=== PATIENT | male | born 1955 | race Caucasian/White ===

== ENCOUNTER → 2017-12-04 11:34 | Outpatient (CLI) | payer OTHER, SELFPAY ==
[2017-12-04 12:42] LABS: Hemoglobin A1C% w Est Avg Glu 7.9 % (4.0-6.0)
[2017-12-04 12:45] LABS: Alanine Aminotransferase 77 IU/L (21-72); Aspartate Aminotransferase 39 IU/L (17-59); Blood Urea Nitrogen 12 mg/dL (9-20); Calcium 9.7 mg/dL (8.4-10.2); Carbon Dioxide 29 mmol/L (22-32); Chloride 102 mmol/L (98-107); Cholesterol 178 mg/dL (140-199); Estimated Glomerular Filt Rate > 60.0 mL/min (>60); Glucose 160 mg/dL (80-110); HDL Cholesterol 25 mg/dL (40-60); HEMOLYSIS < 15 (0-50); LDL Cholesterol Calculated 86 mg/dL (<100); Potassium 4.4 mmol/L (3.4-5.1); Sodium 141 mmol/L (137-145); Triglycerides 334 mg/dL (35-150)
== END ==
PROVIDERS: Family Provider Internal Medicine; PCP Internal Medicine; Visit Provider Internal Medicine
DX: I10 Essential (primary) hypertension (principal); E11.9 Type 2 diabetes mellitus without complications; E78.5 Hyperlipidemia, unspecified
CPT/HCPCS: 36415; 80048; 80061; 83036; 84450; 84460

== ENCOUNTER → 2018-06-30 09:00 | Outpatient (CLI) | payer OTHER, SELFPAY ==
[2018-06-30 09:44] LABS: Hemoglobin A1C% w Est Avg Glu 6.9 % (4.0-6.0)
[2018-06-30 09:51] LABS: Alanine Aminotransferase 44 IU/L (21-72); Aspartate Aminotransferase 22 IU/L (17-59); BUN Creatinine Ratio 21.4 (6-22); Blood Urea Nitrogen 15 mg/dL (9-20); Calcium 9.3 mg/dL (8.4-10.2); Carbon Dioxide 28 mmol/L (22-32); Chloride 101 mmol/L (98-107); Cholesterol 152 mg/dL (140-199); Estimated Glomerular Filt Rate > 60.0 mL/min (>60); Glucose 213 mg/dL (80-110); HDL Cholesterol 23 mg/dL (40-60); HEMOLYSIS 17 (0-50); LDL Cholesterol Calculated 63 mg/dL (<100); Potassium 4.7 mmol/L (3.4-5.1); Sodium 139 mmol/L (137-145); Triglycerides 331 mg/dL (35-150)
== END ==
PROVIDERS: PCP Internal Medicine; Visit Provider Internal Medicine
DX: E78.5 Hyperlipidemia, unspecified (principal); E11.9 Type 2 diabetes mellitus without complications; I10 Essential (primary) hypertension
CPT/HCPCS: 36415; 80048; 80061; 83036; 84450; 84460

== ENCOUNTER → 2019-02-04 09:26 | Outpatient (CLI) | payer MEDICARE, SELFPAY ==
[2019-02-04 12:16] LABS: Hemoglobin A1C% w Est Avg Glu 6.6 % (4.0-6.0)
[2019-02-04 12:53] LABS: Blood Urea Nitrogen 14 mg/dL (9-20); Calcium 9.6 mg/dL (8.4-10.2); Carbon Dioxide 27 mmol/L (22-32); Chloride 100 mmol/L (98-107); Cholesterol 186 mg/dL (140-199); Estimated Glomerular Filt Rate > 60.0 mL/min (>60); Glucose 164 mg/dL (80-110); HDL Cholesterol 23 mg/dL (40-60); HEMOLYSIS < 15 (0-50); LDL Cholesterol Calculated 95 mg/dL (<100); Potassium 4.5 mmol/L (3.4-5.1); Sodium 139 mmol/L (137-145); Triglycerides 339 mg/dL (35-150)
== END ==
PROVIDERS: PCP Internal Medicine; Visit Provider Internal Medicine
DX: I10 Essential (primary) hypertension (principal); E78.5 Hyperlipidemia, unspecified; E11.9 Type 2 diabetes mellitus without complications
CPT/HCPCS: 36415; 80048; 80061; 83036

== ENCOUNTER → 2019-05-27 08:06 | Outpatient (CLI) | payer MEDICARE, SELFPAY ==
[2019-05-27 09:19] LABS: Hemoglobin A1C% w Est Avg Glu 6.6 % (4.0-6.0)
[2019-05-27 09:25] LABS: BUN Creatinine Ratio 21.7 (6-22); Blood Urea Nitrogen 13 mg/dL (9-20); Calcium 9.1 mg/dL (8.4-10.2); Carbon Dioxide 25 mmol/L (22-32); Chloride 104 mmol/L (98-107); Cholesterol 158 mg/dL (140-199); Estimated Glomerular Filt Rate > 60.0 mL/min (>60); Glucose 195 mg/dL (80-110); HDL Cholesterol 21 mg/dL (40-60); HEMOLYSIS < 15 (0-50); LDL Cholesterol Calculated 80 mg/dL (<100); Potassium 4.4 mmol/L (3.4-5.1); Sodium 141 mmol/L (137-145); Triglycerides 284 mg/dL (35-150)
== END ==
PROVIDERS: PCP Internal Medicine; Referring Provider Internal Medicine; Visit Provider Internal Medicine
DX: I10 Essential (primary) hypertension (principal); E78.5 Hyperlipidemia, unspecified; E11.9 Type 2 diabetes mellitus without complications
CPT/HCPCS: 36415; 80048; 80061; 83036

== ENCOUNTER → 2019-11-23 08:59 | Outpatient (CLI) | payer MEDICARE, SELFPAY ==
[2019-11-23 11:05] LABS: Alanine Aminotransferase 38 IU/L (<50); Albumin 4.4 g/dL (3.5-5.0); Albumin Globulin Ratio 1.6 (1.0-2.8); Alkaline Phosphatase 83 U/L (38-126); Aspartate Aminotransferase 26 IU/L (17-59); BUN Creatinine Ratio 22.2 (6-22); Bilirubin Total 0.8 mg/dL (0.2-1.3); Blood Urea Nitrogen 12 mg/dL (9-20); Calcium 9.7 mg/dL (8.4-10.2); Carbon Dioxide 25 mmol/L (22-32); Chloride 102 mmol/L (98-107); Cholesterol 209 mg/dL (140-199); Estimated Glomerular Filt Rate > 60.0 mL/min (>60); Globulin 2.8 g/dL (1.7-4.1); Glucose 368 mg/dL (80-110); HDL Cholesterol 19 mg/dL (40-60); Potassium 4.2 mmol/L (3.4-5.1); Sodium 136 mmol/L (137-145); Total Protein 7.2 g/dL (6.3-8.2)
[2019-11-23 11:12] LABS: HEMOLYSIS 25 (0-50)
[2019-11-23 11:17] LABS: Triglycerides 807 mg/dL (35-150)
[2019-11-23 11:58] LABS: Hemoglobin A1C% w Est Avg Glu 10.2 % (4.0-6.0)
== END ==
PROVIDERS: PCP Internal Medicine; Referring Provider Internal Medicine; Visit Provider Internal Medicine
DX: E11.9 Type 2 diabetes mellitus without complications (principal); E78.5 Hyperlipidemia, unspecified; I10 Essential (primary) hypertension
CPT/HCPCS: 36415; 80053; 80061; 83036

== ENCOUNTER → 2020-05-08 12:36 | Outpatient (CLI) | payer MEDICARE, SELFPAY ==
[2020-05-08] MEDS: COVID-19 VACC #1, MRNA(MOD) 100 MCG/0.5 ML VIAL IM (12:45)
== END ==
PROVIDERS: PCP Internal Medicine; Visit Provider Internal Medicine
DX: Z23 Encounter for immunization (principal)
CPT/HCPCS: 0011A; 91301

== ENCOUNTER → 2020-06-05 11:59 | Outpatient (CLI) | payer MEDICARE, SELFPAY ==
[2020-06-05] MEDS: COVID-19 VACC #2, MRNA(MOD) 100 MCG/0.5 ML VIAL IM (12:23)
== END ==
PROVIDERS: PCP Internal Medicine; Visit Provider Internal Medicine
DX: Z23 Encounter for immunization (principal)
CPT/HCPCS: 0012A; 91301

== ENCOUNTER → 2020-07-17 08:38 | Outpatient (CLI) | payer OTHER, SELFPAY ==
[2020-07-17 09:43] LABS: Creatinine Urine Random 87.5 mg/dL
[2020-07-17 09:47] LABS: Alanine Aminotransferase 26 IU/L (<50); Albumin 4.6 g/dL (3.5-5.0); Albumin Globulin Ratio 1.8 (1.0-2.8); Alkaline Phosphatase 64 U/L (38-126); Aspartate Aminotransferase 20 IU/L (17-59); Bilirubin Total 0.7 mg/dL (0.2-1.3); Blood Urea Nitrogen 9 mg/dL (9-20); Calcium 9.4 mg/dL (8.4-10.2); Carbon Dioxide 29 mmol/L (22-32); Chloride 101 mmol/L (98-107); Cholesterol 152 mg/dL (140-199); Estimated Glomerular Filt Rate > 60.0 mL/min (>60); Globulin 2.5 g/dL (1.7-4.1); Glucose 142 mg/dL (80-110); HDL Cholesterol 24 mg/dL (40-60); HEMOLYSIS < 15 (0-50); LDL Cholesterol Calculated 77 mg/dL (<100); Potassium 4.9 mmol/L (3.4-5.1); Sodium 138 mmol/L (137-145); Total Protein 7.1 g/dL (6.3-8.2); Triglycerides 256 mg/dL (35-150)
[2020-07-17 09:48] LABS: Microalbumin Urine Random 0.7 mg/dL (0-1.6)
[2020-07-17 18:27] LABS: Hemoglobin A1C% w Est Avg Glu 6.4 % (4.0-6.0)
[2020-07-19 02:10] LABS: PSA Free % 56.7 % (.); PSA, Total 0.6 ng/mL (0.0-4.0)
== END ==
PROVIDERS: PCP Internal Medicine; Referring Provider Internal Medicine; Visit Provider Internal Medicine
DX: I10 Essential (primary) hypertension (principal); E11.9 Type 2 diabetes mellitus without complications; E78.5 Hyperlipidemia, unspecified; Z12.5 Encounter for screening for malignant neoplasm of prostate
CPT/HCPCS: 36415; 80053; 80061; 82043; 82570; 83036; 84153; 84154

== ENCOUNTER → 2020-10-01 10:13 | Outpatient (CLI) | payer OTHER, SELFPAY ==
[2020-10-01 10:48] LABS: Hemoglobin A1C% w Est Avg Glu 6.3 % (4.0-6.0)
[2020-10-01 10:56] LABS: Alanine Aminotransferase 17 IU/L (<50); Albumin 4.3 g/dL (3.5-5.0); Albumin Globulin Ratio 1.6 (1.0-2.8); Alkaline Phosphatase 51 U/L (38-126); Aspartate Aminotransferase 17 IU/L (17-59); BUN Creatinine Ratio 16.7 (6-22); Bilirubin Total 0.5 mg/dL (0.2-1.3); Blood Urea Nitrogen 10 mg/dL (9-20); Calcium 9.3 mg/dL (8.4-10.2); Carbon Dioxide 27 mmol/L (22-32); Chloride 105 mmol/L (98-107); Cholesterol 133 mg/dL (140-199); Estimated Glomerular Filt Rate > 60.0 mL/min (>60); Globulin 2.7 g/dL (1.7-4.1); Glucose 135 mg/dL (80-110); HDL Cholesterol 26 mg/dL (40-60); HEMOLYSIS < 15 (0-50); LDL Cholesterol Calculated 67 mg/dL (<100); Potassium 4.5 mmol/L (3.4-5.1); Sodium 138 mmol/L (137-145); Triglycerides 199 mg/dL (35-150)
== END ==
PROVIDERS: PCP Internal Medicine; Referring Provider Internal Medicine; Visit Provider Internal Medicine
DX: E78.5 Hyperlipidemia, unspecified (principal); E11.9 Type 2 diabetes mellitus without complications; I10 Essential (primary) hypertension
CPT/HCPCS: 36415; 80053; 80061; 83036

== ENCOUNTER → 2020-12-23 08:28 | Outpatient (CLI) | payer OTHER, SELFPAY ==
--- NOTE | 2020-12-23 | DI.US.S_ITS ---
PROCEDURE: US ABD AORTA ANEURYSM SCREEN INDICATIONS: SCREENING TECHNIQUE: Real time scanning was performed of the aorta and iliac arteries, with image documentation. COMPARISON: None. FINDINGS: Aorta: Proximal aortic diameter measures 3 x 3 cm. Mid-aorta measures 2.5 cm. Distal aortic diameter is 2.3 cm. Iliac arteries: Right common iliac artery measures 1.4 cm. Left common iliac artery measures 1.4 cm. IMPRESSION: Minimal proximal aortic aneurysm, measuring 3 cm AP. Dictated by: Ashutosh Soliz M.D. on 12/23/2020 at 9:02 Approved by: Ashutosh Soliz M.D. on 12/23/2020 at 9:02
== END ==
PROVIDERS: PCP Internal Medicine; Referring Provider Internal Medicine; Visit Provider Internal Medicine
DX: Z13.6 Encounter for screening for cardiovascular disorders (principal)
CPT/HCPCS: 76706

== ENCOUNTER 2021-03-02 08:58 | Day surgery (SDC) | payer OTHER, SELFPAY ==
--- NOTE | 2021-03-02 | PATH_ITS ---
[facility] Accession Number: [id number] . 01 Material submitted: . colon - ASCENDING COLON POLYP . 02 Diagnosis: Ascending Colon Polyp: Tubular adenoma. MRV 03/04/2021 1222 Local . 02 Electronically signed: . Bozena Camacho MD, Pathologist NPI- [id number] . 01 Gross description: . The specimen is received in formalin, labeled ascending colon polyp and consists of a 0.4 x 0.3 x 0.3 cm espitia-pink fragment of soft tissue, which is entirely submitted in cassette A1. ([id number]) /MRV 03/03/2021 1229 Local . 02 Pathologist provided ICD-10: K63.5 . 02 CPT . 993103 Performed at: 01 [facility] [address] [id number] MD Pradeep Young MD Phone: [phone] Performed at: 02 [facility] [place] [address] [place] [id number] MD Giuliana Childers MD Phone: [phone]
[2021-03-02 09:14] VITALS: BP 160/95; PULSE 62; RESP 16; TEMP 36.4; O2SAT 99; BMI 29.0
--- NOTE | 2021-03-02 09:29 | PM.HP.1 ---
History of Present Illness History of Present Illness Date Patient Seen: 03/02/21 Time Patient Seen: 09:29 Chief complaint: DX COLONOSCOPY Narrative: Here for colonoscopy personal history of colon polyps. Patient History Medical History No significant medical problems Family & Social History Tobacco & Substance use: Smoking Status Former smoker Meds Home Medications and Allergies Home Medications Medication Instructions Recorded Confirmed Type atorvastatin 10 mg tablet (Lipitor) 10 mg PO HS #0 12/01/16 04/20/19 History citalopram 40 mg tablet (Celexa) 40 mg PO QDAY #0 12/01/16 04/20/19 History omega 0-mpf-yym-fish oil 1,000 mg 1,000 mg PO #0 12/01/16 04/20/19 History (120 mg-180 mg) capsule (Fish Oil) triamcinolone acetonide 0.1 % 1 janak TOPICAL BID #15 gm 12/01/16 04/20/19 Rx topical cream amoxicillin 875 mg-potassium 1 tab PO BID #14 tab 04/20/19 04/20/19 Rx clavulanate 125 mg tablet (Augmentin) benzonatate 100 mg capsule 100 mg PO BID PRN #14 cap 04/20/19 04/20/19 Rx (Tessalon Perles) glipizide-metformin PO 04/20/19 04/20/19 History metformin 1,000 mg tablet 1,000 mg PO DAILY 04/20/19 04/20/19 History Allergies Allergy/AdvReac Type Severity Reaction Status Date / Time No Known Drug Allergies Allergy Unverified 04/20/19 10:58 Review of Systems Review of Systems ROS: Yes All systems reviewed with the patient and are negative except as otherwise documented Exam Const General: cooperative and comfortable Orientation: alert HENMT Head: normocephalic Ears: external ears normal Nose: external nose normal Face and sinus: normal facial exam Eyes General: appearance normal, both eyes and all related structures Neck Neck: normal visual inspection Chest Chest: normal inspection of the chest Resp Effort & Inspection: normal respiratory effort Cardio Rate: regular rate GI Inspection: normal to inspection Skin General: no rashes or lesions noted and No jaundice Neuro General: patient alert and moves all extremities Cognition: normal cognition Speech: speech normal Extrem General: normal to inspection Psych Appearance: grossly normal Assessment & Plan Assessment & Plan narrative: Personal history of colon polyps. Colonoscopy is planned for today. Time Spent With Patient Critical Care time: I spent a total of [] minutes of critical care time on this patient's care today; this time is exclusive of procedural time.
[2021-03-02 09:34] LABS: COVID19 -Nasal RAPID Negative (Negative)
[2021-03-02] MEDS: LACTATED RINGERS 1,000 ML 84 ML IV (09:54)
--- NOTE | 2021-03-02 11:01 | PM.OP.COLON ---
Operative Date/Time/Diagnoses Date of procedure: 03/02/21 Time of procedure: 11:01 Pre-op diagnosis: Polyp history Post-op diagnosis: same Procedure & Clinicians Study performed: Colonoscopy with hot snare polypectomy Same procedure as scheduled: Yes Indications: Polyp history Surgeon: Mirza Valle Procedure Notes SCOAP/Timeout: Done Procedure in detail: After the risks and benefits were explained, written and verbal informed consent was obtained. The patient was brought into the procedure room and placed into the left lateral decubitus position. Please see nurse legal paraprofessional notes for sedation details. Digital rectal examination was accomplished. The scope was introduced into the patient and advanced under direct visualization to the cecum as identified by the appendiceal orifice and ileocecal valve. The scope was slowly withdrawn to carefully examine the mucosa for any defects or lesions. Comprehensive imaging was accomplished throughout the rectum including the dentate line. The colon was decompressed, the scope was then removed from the patient who tolerated the procedure well. Bowel prep fair Adult colonoscope Scope withdrawal time: 11 minutes Sedation minutes: 19 Complications: none Impression: Extensive diverticulosis was encountered in the sigmoid. There was an approximately 6-7 mm sessile polyp in the ascending colon removed with hot snare. There was a 2nd 6 mm polyp in the transverse removed with hot snare. This 2nd polyp was removed but if not retrieved (it was lost in some of the residual prep and stool debris) Endoscopic diagnosis 1. Colon polyps 2. Diverticulosis Post-procedure Recommendations: Colonoscopy in 3 years Plan for aftercare: 1. Await histopathology 2. Considering the presence of polyps and a fair prep today, repeat colonoscopy is suggested for 3 years Disposition: PACU
[2021-03-02 11:02] VITALS: BP 124/82; PULSE 73; RESP 22; TEMP 36.5; O2SAT 98
[2021-03-02 11:07] VITALS: BP 115/88; PULSE 63; RESP 14; O2SAT 98
--- NOTE | 2021-03-02 11:09 | PM.PREOP ---
Pre-operative Note COVID-19 COVID-19 status: Negative Result date/Date tested (Pos, Neg/Pending): 03/02/21 Interval Note History & Physical reviewed/Exam performed by Physician: Yes Changes to H&P: No ASA Class (for procedural sedation): II
[2021-03-02 11:12] VITALS: BP 133/89; PULSE 67; RESP 14; O2SAT 98
[2021-03-02 11:16] VITALS: BP 131/88; PULSE 58; RESP 12; O2SAT 98
== END 2021-03-02 11:50 | disposition home or self-care (01) ==
PROVIDERS: PCP Internal Medicine; Referring Provider Internal Medicine Gastroenterology; Visit Provider Internal Medicine Gastroenterology
PROC: 0DJD8ZZ Inspection of Lower Intestinal Tract, Via Natural or Artificial Opening Endoscopic (ICD-10-PCS; CPT 45378; principal; 2021-03-02 10:00)
DX: Z12.11 Encounter for screening for malignant neoplasm of colon (principal); Z86.010 Personal history of colon polyps; K57.30 Diverticulosis of large intestine without perforation or abscess without bleeding; D12.2 Benign neoplasm of ascending colon
CPT/HCPCS: 45385; 87635; J2704

== ENCOUNTER → 2023-01-24 08:16 | Outpatient (CLI) | payer MEDICARE, SELFPAY ==
--- NOTE | 2023-01-24 | DI.US.S_ITS ---
PROCEDURE: US ABD AORTA ANEURYSM SCREEN INDICATIONS: AORTIC ANEURYSM TECHNIQUE: Real time scanning was performed of the aorta and iliac arteries, with image documentation. COMPARISON: [facility], , ABD AORTA ANEURYSM SCREEN, 12/23/2020, 8:46. FINDINGS: Aorta: Proximal aortic diameter measures 3 cm. Mid-aorta measures 2.5 x 2.1 cm. Distal aortic diameter is 2.3 x 2.0 cm. Iliac arteries: Right common iliac artery measures 1.4 x 1.2 cm. Left common iliac artery measures 1.4 x 1.0 cm. IMPRESSION: Borderline abdominal aortic aneurysm at 3 cm in the proximal region. Consider 3 year follow-up. Dictated by: Sami Angulo M.D. on 01/24/2023 at 9:27 Approved by: Sami Angulo M.D. on 01/24/2023 at 9:28
== END ==
PROVIDERS: PCP Internal Medicine; Referring Provider Internal Medicine; Visit Provider Internal Medicine
DX: I71.40 Abdominal aortic aneurysm, without rupture, unspecified (principal)
CPT/HCPCS: 76706

== ENCOUNTER 2024-03-27 07:28 | Day surgery (SDC) | payer MEDICARE, SELFPAY ==
[2024-03-27 08:31] VITALS: BP 136/85; PULSE 73; RESP 18; TEMP 35.8; O2SAT 97
--- NOTE | 2024-03-27 08:32 | PM.HP.1 ---
History of Present Illness History of Present Illness Date Patient Seen: 03/27/24 Chief complaint: Dx Colonoscopy w/poss bx Narrative: Personal history of colon polyps [facility] Medical History (Updated 03/27/24 @ 08:14 by Juanis Pope RN) Hx of diabetes mellitus History of depression History of high cholesterol No significant medical problems Social History household members: none Smoking Status: Former smoker alcohol intake: current Meds Home Medications and Allergies Home Medications Medication Instructions Recorded Confirmed Type atorvastatin 10 mg tablet (Lipitor) 10 mg PO HS ##0 12/01/16 03/27/24 History citalopram 40 mg tablet (Celexa) 40 mg PO QDAY ##0 12/01/16 03/27/24 History omega 1-uqj-tzm-fish oil 1,000 mg 1,000 mg PO ##0 12/01/16 04/20/19 History (120 mg-180 mg) capsule (Fish Oil) triamcinolone acetonide 0.1 % 1 janak topical BID ##15 12/01/16 04/20/19 Rx topical cream metformin 1,000 mg tablet 2,000 mg PO DAILY 04/20/19 03/27/24 History alprazolam 0.5 mg tablet 0.5 mg PO PRN PRN Anxiety 03/02/21 03/27/24 History semaglutide 2 mg/dose (8 mg/3 mL) 1 mg SUBCUT 03/27/24 History subcutaneous pen injector Allergies Allergy/AdvReac Type Severity Reaction Status Date / Time No Known Drug Allergies Allergy Verified 03/02/21 09:35 Exam Narrative Exam Narrative: Oropharynx free of lesions Chest clear to auscultation percussion Cardiac exam reveals no S3 or murmur Assessment & Plan Assessment & Plan narrative: Personal history of colon polyps need for follow-up colonoscopy at a 3 year interval. Risks, benefits, alternatives have explained. Time-Based Coding :: [TOTAL MINUTES] spent with patient and on the chart (including review of chart, obtaining history, exam, reviewing outside data, placing orders, documenting exam and treatment plan, and counseling patient) on [DATE].
--- NOTE | 2024-03-27 08:33 | PM.OP.COLON ---
Operative Date/Time/Diagnoses Date of procedure: 03/27/24 Pre-op diagnosis: See indication and findings Procedure & Clinicians Study performed: Colonoscopy Indications: Personal history of polyps Surgeon: Armida Rogers Procedure Notes Procedure in detail: After informed consent was obtained the patient was placed in left lateral decubitus position. The video colonoscope was placed in the rectum and slowly advanced.. Unfortunately preparation was not good. On slow withdrawal mucosa was carefully examined. The scope was removed. The patient tolerated procedure well. Blood loss none Complications none Sedation mac Findings 1. Significant residual prep. This included many stool balls from the extensive diverticulosis in the left side. This combined with semi-liquid stool throughout which could not be suctioned given the large number of stool balls, the procedure was aborted. Scope was passed to just proximal to the splenic flexure. Patient should be rescheduled with a prep that included an extra dose to give more time to expel the excess stool.
[2024-03-27 09:08] VITALS: BP 130/79; PULSE 75; RESP 12; TEMP 36.4; O2SAT 97
[2024-03-27 09:13] VITALS: BP 129/87; PULSE 74; RESP 14; TEMP 36.4; O2SAT 98
[2024-03-27 09:20] VITALS: BP 121/78; PULSE 71; RESP 15; TEMP 36.6; O2SAT 98
== END 2024-03-27 09:44 | disposition home or self-care (01) ==
PROVIDERS: PCP Internal Medicine; Referring Provider Internal Medicine Gastroenterology; Visit Provider Internal Medicine Gastroenterology
PROC: 0DJD8ZZ Inspection of Lower Intestinal Tract, Via Natural or Artificial Opening Endoscopic (ICD-10-PCS; CPT 45378; principal; 2024-03-27 09:30)
DX: Z12.11 Encounter for screening for malignant neoplasm of colon (principal); Z86.0100 Personal history of colon polyps, unspecified; K57.30 Diverticulosis of large intestine without perforation or abscess without bleeding; Z53.09 Procedure and treatment not carried out because of other contraindication
CPT/HCPCS: G0105; J2704

== ENCOUNTER 2024-05-13 07:52 | Day surgery (SDC) | payer MEDICARE, SELFPAY ==
[2024-05-13 08:26] VITALS: BP 142/81; PULSE 67; RESP 16; TEMP 36.3; O2SAT 97
--- NOTE | 2024-05-13 08:32 | SUR.PREOP ---
Dr Rogers states brandon for [employer] to provide transport home post procedure
[2024-05-13] MEDS: SODIUM CHLORIDE 0.9% 1,000 ML 84 ML IV (08:33)
--- NOTE | 2024-05-13 08:50 | P.HP_ITS ---
History of Present Illness History of Present Illness Date Patient Seen: 05/13/24 Chief complaint: Colonoscopy w/poss bx Narrative: Personal history of colon polyps and family history of colon cancer in his mother. Need for screening colonoscopy. [facility] Medical History (Updated 03/27/24 @ 08:14 by Juanis Pope, ISA) Hx of diabetes mellitus History of depression History of high cholesterol No significant medical problems Social History household members: none Smoking Status: Former smoker alcohol intake: current Meds Home Medications and Allergies Home Medications Medication Instructions Recorded Confirmed Type atorvastatin 10 mg tablet (Lipitor) 10 mg PO HS ##0 12/01/16 05/13/24 History citalopram 40 mg tablet (Celexa) 40 mg PO QDAY ##0 12/01/16 05/13/24 History omega 9-frj-sdn-fish oil 1,000 mg 1,000 mg PO ##0 12/01/16 04/20/19 History (120 mg-180 mg) capsule (Fish Oil) triamcinolone acetonide 0.1 % 1 janak topical BID ##15 12/01/16 04/20/19 Rx topical cream metformin 1,000 mg tablet 2,000 mg PO DAILY 04/20/19 05/13/24 History alprazolam 0.5 mg tablet 0.5 mg PO PRN PRN Anxiety 03/02/21 05/13/24 History semaglutide 2 mg/dose (8 mg/3 mL) 1 mg SUBCUT 03/27/24 History subcutaneous pen injector Allergies Allergy/AdvReac Type Severity Reaction Status Date / Time No Known Drug Allergies Allergy Verified 03/02/21 09:35 Exam Vital Signs (past 8 hours): - 05/13/24 08:26 Temperature 97.3 F L Pulse Rate 67 Respiratory Rate 16 Blood Pressure 142/81 H Pulse Oximetry 97 Oxygen Delivery Method Room Air Oxygen Delivery Method Room Air Narrative Exam Narrative: Oropharynx free of lesions Chest clear to auscultation percussion Cardiac exam reveals no S3 or murmurs Assessment & Plan Assessment & Plan narrative: Personal history of colon polyps and family history of colon cancer need for follow-up colonoscopy. Risks, benefits, alternatives have been explained. Time-Based Coding :: [TOTAL MINUTES] spent with patient and on the chart (including review of chart, obtaining history, exam, reviewing outside data, placing orders, documenting exam and treatment plan, and counseling patient) on [DATE].
--- NOTE | 2024-05-13 08:52 | P.OP.COLON_ITS ---
Operative Date/Time/Diagnoses Date of procedure: 05/13/24 Pre-op diagnosis: See indication and findings Procedure & Clinicians Study performed: Colonoscopy Indications: Personal history of colon polyps and family history of colon cancer in a first- degree relative Surgeon: Armida Rogers Procedure Notes Procedure in detail: After informed consent was obtained the patient was placed in left lateral decubitus position. The video upper scope was placed into the oropharynx and with the patient's help swallowed into the esophagus. The esophagus stomach and duodenal were carefully examined. On withdrawal, retroflexed view the GE junction was performed. The scope was removed. The patient tolerated procedure well. Blood loss none Complications none Sedation mac Findings 1. Rare scattered diverticula particularly on the left side 2. Otherwise negative colonoscopy to cecum. Preparation was excellent. Given the family history and personal history of colon polyps he should have follow-up colonoscopy in 5 years.
[2024-05-13 09:26] VITALS: BP 110/73; PULSE 13; RESP 95; TEMP 36.6
[2024-05-13 09:31] VITALS: BP 107/70; PULSE 66; RESP 12; O2SAT 97
[2024-05-13 09:36] VITALS: BP 116/78; PULSE 71; RESP 12; O2SAT 96
[2024-05-13 09:52] VITALS: BP 118/80; PULSE 72; RESP 13; O2SAT 96
== END 2024-05-13 09:57 | disposition home or self-care (01) ==
PROVIDERS: PCP Internal Medicine; Referring Provider Internal Medicine Gastroenterology; Visit Provider Internal Medicine Gastroenterology
PROC: 0DJD8ZZ Inspection of Lower Intestinal Tract, Via Natural or Artificial Opening Endoscopic (ICD-10-PCS; CPT 45378; principal; 2024-05-13 09:00)
DX: Z12.11 Encounter for screening for malignant neoplasm of colon (principal); Z86.0100 Personal history of colon polyps, unspecified; Z80.0 Family history of malignant neoplasm of digestive organs; Z87.891 Personal history of nicotine dependence; K57.30 Diverticulosis of large intestine without perforation or abscess without bleeding
CPT/HCPCS: G0105; J2704